=== PATIENT | female | born 1960 | race African-American/Black ===

== ENCOUNTER → 2018-11-16 | Outpatient (CLI) | payer OTHER ==
--- NOTE | 2018-11-16 17:13 | KCIC ---
BILATERAL SCREENING MAMMOGRAM History: Routine screening. Comparison: Bilateral mammogram 05/01/2014. Technique: Routine bilateral digital mammogram views were obtained. Findings: Breast Tissue Density B : There are scattered areas of fibroglandular density. There are no dominant masses, suspicious microcalcifications, or architectural distortion. IMPRESSION: No mammographic evidence of malignancy. Recommend routine screening. BI-RADS category 1: Negative. The images were reviewed with computer aided detection. Patient information is entered into the reminder system with a target due date for the next screening mammogram. Mammography is the most sensitive method for finding small breast cancers, but it does not detect them all and is not a substitute for careful clinical examination. A negative mammogram does not negate a clinically suspicious finding and should not result in delay in biopsying a clinically suspicious abnormality. "Our facility is accredited by the [employer] Mammography Program." Electronically signed by: Anam Trent MD (11/16/2018 5:10 PM) [id number]
== END | disposition home or self-care (01) ==
LOC: KCIC MAMMO 15:25
PROVIDERS: ATTEND Family Medicine
DX: Z12.31 Encounter for screening mammogram for malignant neoplasm of breast (principal)
CPT/HCPCS: 77067

== ENCOUNTER 2021-08-02 05:56 | Day surgery (SDC) | payer OTHER ==
[~2021-08-02] VITALS: Ht 160 cm; Wt 89.5 kg
[~2021-08-02 05:56] MED LIST: ACET500P23 PO; LOSA-73 PO; MELO15TA23 PO; MULT-121 PO; OMEP40CA7 PO; TIZA2CAP PO
[2021-08-02] MEDS ORDERED: IV RINGERS,LACTATED 1000ML 1,000 ML IV SCH (06:00)
[2021-08-02] MEDS ORDERED: fentaNYL PF VIAL 100 MCG/2 ML VIAL IVP PRN ×2 (06:00)
[2021-08-02] MEDS ORDERED: PROCHLORPERAZINE 10 MG/2 ML VIAL. IVP PRN (06:00)
[2021-08-02] MEDS ORDERED: HYDROmorphone 2 MG/ML INJ. IVP PRN (06:00)
[2021-08-02] MEDS ORDERED: MORPHINE SULFATE 2 MG/ML INJ. IVP PRN (06:00)
[2021-08-02] MEDS ORDERED: ceFAZolin 2GM PREMIX 2 GM/50 ML BAG IV ONE (06:10)
[2021-08-02 06:26] VITALS: BP 169/84
[2021-08-02] MEDS ORDERED: ROPIVacaine 0.5% PF 20 ML VIAL. ONE (06:47)
[2021-08-02] MEDS ORDERED: MIDAZOLAM HCL/PF 2 MG/2 ML VIAL. ONE (06:47)
[2021-08-02] MEDS ORDERED: PROPOFOL 10 MG/ML (20ML) VIAL. IV ONE (06:51)
[2021-08-02] MEDS ORDERED: ROCURONIUM 50 MG/5 ML VIAL. ONE (06:55)
[2021-08-02] MEDS ORDERED: LIDOCAINE 1% PF 5 ML VIAL. ONE (06:55)
[2021-08-02] MEDS ORDERED: SUCCINYLCHOLINE 200 MG/10 ML VIAL. ONE (07:00)
[2021-08-02] MEDS ORDERED: EPINEPHrine VIAL 30 MG/30 ML VIAL ONE (07:18)
[2021-08-02] MEDS ORDERED: ROCURONIUM 100 MG/10 ML VIAL. ONE (07:30)
[2021-08-02] MEDS ORDERED: OXYC1TAB15 PO (07:37)
[2021-08-02] MEDS ORDERED: PHENYLEPHRINE 10 MG/ML VIAL. ONE (08:26)
[2021-08-02] MEDS ORDERED: ePHEDrine PF IN SALINE 50 MG/10 ML SYRINGE. IV ONE (08:26)
--- NOTE | 2021-08-02 08:47 | PDOC4 ---
OPERATIVE NOTE Date: Date: Aug 02, 2021 Pre-Op Diagnosis: Impingement AC arthrosis bicep tendinitis with deep partial rotator cuff tear right shoulder Post-Op Diagnosis: Same Procedure Performed: Right shoulder arthroscopy with subacromial decompression distal clavicle res ection bursectomy mini open rotator cuff repair right shoulder Surgeon: Danica Anesthesia Type: General Blood Loss: 20 cc Specimans Obtained: None Findings: See dictation Complications: None JEREMY HERR Jr. DO Aug 02, 2021 08:47
--- NOTE | 2021-08-02 08:49 | DISCH ---
DISCHARGE INSTRUCTIONS Condition on Discharge Condition on Discharge: Stable Activity After Discharge Activity Instructions for Disc: Avoid exertion Driving Instructions after Dis: No driving for 2 weeks Weight Bearing Status after Di: As tolerated Wound Incision Care Other wound/incision instructi: May change dressings postoperative day #3 or come to the office we will gisella Follow-Up Follow up with: 10 to 14 days Treatment/Equipment after DC Adaptive Equipment Issued: Brace/splint (Maintain immobilizer at all times) JEREMY HERR Jr. DO Aug 02, 2021 08:49
--- NOTE | 2021-08-02 08:52 | HP ---
DATE OF SERVICE: 08/02/2021 ADMIT DATE: 08/02/2021 PREOPERATIVE HISTORY AND PHYSICAL BRIEF HISTORY: The patient is a 60-year-old right hand dominant female who has received multiple steroid injections as well as physical therapy, anti-inflammatories, modifying her activities, continues with significant pain to the right shoulder. She had the pain beginning in the spring, it has increased in severity and any type of lifting, pushing, pulling causes significant pain and discomfort and again, as she has failed at this point, all conservative therapies and MRI showed a near complete rotator cuff tear. REVIEW OF SYSTEMS: Unremarkable other than shoulder symptoms. MEDICAL HISTORY: Anxiety, panic disorder, esophageal reflux, fibromyalgia, colonic polyps, adenoma, diabetes, hypertension, ovarian cyst. PAST SURGICAL HISTORY: Tubal ligation, fracture repair of the ankle x 2, bunionectomy, LEEP and polypectomy. FAMILY HISTORY: CVA and undiagnosed neoplasm. SOCIAL HISTORY: The patient has never used any tobacco or alcohol. MEDICATIONS: Tizanidine, omeprazole, meloxicam, Lyrica, losartan, diclofenac, multivitamins, gabapentin in the past but not currently taking that. MEDICATION ALLERGIES: ASPIRIN, WHICH CAUSES NAUSEA NOT A TRUE ALLERGY. PHYSICAL EXAMINATION: She is 63 inches tall, 200 pounds. She has a very positive Speed's test, but mainly with abduction and forward elevation, signs of impingement, rotator cuff tendinitis, pain at the AC joint with cross and pain with crossover at the AC joint. Her range of motion is forward elevation of 125 today. Abduction is about 145. Internal and external rotation are 50 and 65 degrees respectively. No weakness with internal rotation versus resistance. There is definite weakness with external rotation and isolation of the supraspinatus, which also reproduces the pain. Negative crank test. IMPRESSION: Rotator cuff partial tear deep, right shoulder and biceps tendinitis. PLAN: At this time, I have talked with her and her today about the diagnosis and the treatment plan. She still wishes to undergo right shoulder arthroscopy. We have therefore gone over the risks, complications as well as benefits and expectations of surgery, postoperative protocol and followup. We will get this set up as soon as possible later this morning. Anesthesia will do a preoperative block. CORAL/RIZWAN DR: Marjorie TID: [id number]
[2021-08-02] MEDS ORDERED: LABETALOL 20 MG/4 ML DISP.SYRIN. IVP ONE (09:23)
[2021-08-02 10:06] VITALS: BP 189/96
--- NOTE | 2021-08-02 10:58 | OP ---
DATE OF SURGERY: 08/02/2021 PREOPERATIVE DIAGNOSIS: Impingement; acromioclavicular arthrosis; biceps tendinitis; partial rotator cuff tear, deep, right shoulder. POSTOPERATIVE DIAGNOSIS: Impingement; acromioclavicular arthrosis; biceps tendinitis; partial rotator cuff tear, deep, right shoulder. PROCEDURE: Right shoulder arthroscopy with subacromial decompression, distal clavicle resection, mini open rotator cuff repair. SURGEON: Frantz Mishra Jr, DO MARKETING INSTRUCTOR: Armando Ann. ANESTHESIA: General. COMPLICATIONS: None. ESTIMATED BLOOD LOSS: 20 mL. DESCRIPTION OF PROCEDURE: The patient was taken to the operative suite, given a general anesthetic, placed in a beach chair position. In the holding area, she also underwent an interscalene block. After the right shoulder was prepped and draped in a sterile fashion, standard posterior portal was established. Glenohumeral joint was visualized. The glenoid and the humeral surfaces were completely intact and stable. There were no signs of degenerative changes at all. The labral tissue was completely intact. The biceps tendon looked excellent with probing with an anterior portal, which was established. The glenoid labrum was indeed looking very good and very stable as was the biceps tendon. There were no loose bodies within the inferior recess, but the undersurface of the rotator cuff revealed along the area of the supraspinatus of a very deep area of damage, a near complete tear of the rotator cuff along the area of the supraspinatus. Scope was then taken into the subacromial region where significant amount of bursa was removed. There was also downsloping of the anterior acromion as well as the AC joint, significant spurring. Therefore, a lateral portal was established to undergo a subacromial decompression, which was performed, and then the anterior portal was redirected into the area of the AC joint. A portion of the acromion as well as the clavicle were removed on the undersurface to decompress and remove osteophytes and approximately a cm and a half of the distal clavicle was resected due to the arthritic changes noted. After this was done, there was noted to be again nearly 100% tear of the supraspinatus noted from the acromial side of the joint. Therefore, a mini incision was made through skin and subcutaneous tissues incorporating that lateral aspect of the portal site. This was taken down through the deltoid fascia. This was retracted anteriorly and posteriorly and the tear was completed along this area. Therefore, 2 suture anchors as well as 2 SwiveLocks were used using standard technique to perform the repair with a medial and lateral row fixation. There was noted to be excellent fixation of this cuff tear and positioning. No retraction was noted at this point and this was after further bursa was removed. After the cuff was noted to be very stable, this was then thoroughly irrigated. The deltoid split was reapproximated. Superficial tissue and skin was reapproximated. Sterile dressing was applied along with an immobilizer being placed. The patient was then taken from the operative bed to the postoperative bed and taken to the PACU in stable condition. RICKIE/EVA DR: Marjorie TID: [id number]
== END 2021-08-02 10:40 | disposition home or self-care (01) ==
LOC: SURG 05:56
PROVIDERS: ATTEND Orthopaedic Surgery
DX: M75.101 Unspecified rotator cuff tear or rupture of right shoulder, not specified as traumatic (principal); M19.011 Primary osteoarthritis, right shoulder; M75.21 Bicipital tendinitis, right shoulder; K21.9 Gastro-esophageal reflux disease without esophagitis; I10 Essential (primary) hypertension; F41.9 Anxiety disorder, unspecified; Z79.899 Other long term (current) drug therapy; Z98.51 Tubal ligation status; Z98.890 Other specified postprocedural states; Z72.89 Other problems related to lifestyle; Z88.8 Allergy status to other drugs, medicaments and biological substances
CPT/HCPCS: 29824; 29826; 29827; A4565; A4930; C1713; J0171; J0330; J0690; J2250; J2370; J2704; J2795; J3490; A4452